=== PATIENT | female | born 1965 | race Two or more races ===

== ENCOUNTER 2020-04-21 01:47 | Emergency (ER) | payer SELFPAY ==
[~2020-04-21] VITALS: Ht 152.4 cm; Wt 75.4 kg
--- NOTE | 2020-04-21 02:36 | NUR ---
XRAY AT BEDSIDE
--- NOTE | 2020-04-21 02:57 | NUR ---
PT SITTING UPRIGHT ON GURNEY, NADN, VSS. OCCASIONALLY COUGHING. PT DENIES ANY NEEDS AT THIS TIME. CALL LIGHT WITHIN REACH.
--- NOTE | 2020-04-21 02:57 | NUR ---
ERP AT BEDSIDE
--- NOTE | 2020-04-21 03:25 | NUR ---
Patient given discharge instructions and they have confirmed that they understand the instructions. Patient ambulatory with steady gait.
[2020-04-21 03:35] VITALS: BP 130/82
== END 2020-04-21 03:38 | disposition home or self-care (01) ==
LOC: ED 02:12
DX: B34.9 Viral infection, unspecified (principal); Z20.822 Contact with and (suspected) exposure to COVID-19; R07.9 Chest pain, unspecified; F17.210 Nicotine dependence, cigarettes, uncomplicated
CPT/HCPCS: 71045; 87635; 93005; 99285; 99406